=== PATIENT | male | born 1950 | race Two or more races ===

== ENCOUNTER 2020-02-23 12:13 | Emergency (ER) | payer OTHER ==
[~2020-02-23] VITALS: Ht 167.6 cm; Wt 77.1 kg
[2020-02-23] MEDS ORDERED: BACTRIM DS TAB1 EACH PO (15:10)
[2020-02-23] MEDS ORDERED: KETO10TA2 PO (15:12)
== END 2020-02-23 15:21 | disposition home or self-care (01) ==
LOC: ER 12:13
DX: R21 Rash and other nonspecific skin eruption (principal)

== ENCOUNTER 2020-03-15 07:16 | Emergency (ER) | payer OTHER ==
[~2020-03-15] VITALS: Ht 167.6 cm; Wt 79.4 kg
[~2020-03-15 07:16] MED LIST: BACTRIM DS TAB1 EACH PO; KETO10TA2 PO
[2020-03-15] MEDS ORDERED: LISINOPRIL5 MG (07:51)
[2020-03-15] MEDS ORDERED: ATORVASTATIN CA10 MG (07:51)
[2020-03-15] MEDS ORDERED: GLIPIZIDE ER2.5 MG (07:51)
[2020-03-15] MEDS ORDERED: VALTREX1000 MG PO (08:32)
== END 2020-03-15 08:42 | disposition home or self-care (01) ==
LOC: ER 07:16
DX: A60.01 Herpesviral infection of penis (principal)